=== PATIENT | female | born 1985 | race Caucasian/White ===

== ENCOUNTER 2020-07-07 13:12 | Outpatient (REF) | payer OTHER, SELFPAY ==
[2020-07-07 16:28] LABS: TSH reflex Free T4 1.51 mIU/mL (0.32-4.0)
[2020-07-07 16:34] LABS: Syphilis Screen Nonreactive (Nonreactive)
[2020-07-08 01:49] LABS: CT PCR NOT DETECTED (Not Detect.); NG PCR NOT DETECTED (Not Detect.)
[2020-07-08 07:52] LABS: Follicle Stimulating Hormone 4.9 mIU/mL; Prolactin 9.9 ng/mL
[2020-07-08 11:28] LABS: BV Int Neg Control Negative (Negative); BV Int Pos Control Positive (Positive)
[2020-07-09 08:33] LABS: HBsAGNum1 0.13 S/CO (0.00-0.99); HIV AB/AG Nonreactive (Nonreactive); HIV Num 1 0.12 S/CO (0.00-0.99); Hepatitis B Surface Antigen Negative (Negative)
[2020-07-11 13:32] LABS: Testosterone, Total 46 ng/dL (2-45)
== END 2020-07-07 13:13 | disposition home or self-care (01) ==
LOC: HO.LAB 13:12
PROVIDERS: PCP Nurse Practitioner Family; Referring Provider Nurse Practitioner Family; Visit Provider Obstetrics & Gynecology
DX: Z01.419 Encounter for gynecological examination (general) (routine) without abnormal findings (principal); Z11.3 Encounter for screening for infections with a predominantly sexual mode of transmission; N91.2 Amenorrhea, unspecified
CPT/HCPCS: 83001; 84146; 84403; 84443; 86780; 87340; 87389; 87480; 87491; 87510; 87591; 87660

== ENCOUNTER 2020-07-08 08:30 | Outpatient (REF) | payer OTHER, SELFPAY ==
[2020-07-08 08:47] LABS: COVID-19 Test Negative (Negative)
[2020-07-11 21:21] LABS: HPV 16 RNA NOT DETECTED (NOT DETECTED); HPV mRNA E6/E7 Detected (Not Detected)
== END 2020-07-08 08:31 | disposition home or self-care (01) ==
LOC: HO.LAB 08:30
PROVIDERS: Visit Provider Internal Medicine
DX: Z20.828 Contact with and (suspected) exposure to other viral communicable diseases (principal); Z12.4 Encounter for screening for malignant neoplasm of cervix; Z11.3 Encounter for screening for infections with a predominantly sexual mode of transmission
CPT/HCPCS: 87624; 87625; 87635; 88141; 88142

== ENCOUNTER → 2020-07-30 11:29 | Outpatient (BNVA) | payer OTHER, SELFPAY | PROVIDERS: Visit Provider Obstetrics & Gynecology | DX: Z76.89 Persons encountering health services in other specified circumstances (principal) ==

== ENCOUNTER 2020-08-04 09:33 | Outpatient (REF) | payer OTHER, SELFPAY ==
[2020-08-04 11:28] LABS: COVID-19 Test Negative (Negative)
== END 2020-08-04 09:34 | disposition home or self-care (01) ==
LOC: HO.EMPCOV 09:33
PROVIDERS: PCP Nurse Practitioner Family; Visit Provider Internal Medicine
DX: Z20.828 Contact with and (suspected) exposure to other viral communicable diseases (principal)
CPT/HCPCS: 87635; C9803

== ENCOUNTER 2020-08-12 08:06 | Outpatient (REF) | payer OTHER, SELFPAY ==
[2020-08-12 09:06] LABS: COVID-19 Test Negative (Negative); IDNOW Serial# 55D5AD1C
== END 2020-08-12 08:07 | disposition home or self-care (01) ==
LOC: HO.EMPCOV 08:06
PROVIDERS: Visit Provider Internal Medicine
DX: Z20.828 Contact with and (suspected) exposure to other viral communicable diseases (principal)
CPT/HCPCS: 87635; C9803

== ENCOUNTER 2020-08-14 12:51 | Outpatient (REF) | payer SELFPAY ==
--- NOTE | 2020-08-14 12:53 | US_ITS ---
EXAMINATION: ULTRASOUND PELVIS. CLINICAL INFORMATION: Amenorrhea. COMPARISON: None. TECHNIQUE: Transabdominal and transvaginal ultrasound the pelvis is performed. FINDINGS: The uterus is anteverted and anteflexed measuring 7.6 cm in length, 3.5 cm in AP and 4.5 cm transverse dimension. Uterus is homogeneous in echotexture. No focal lesions seen. Endometrial thickening measures 0.8 cm. Right ovary measures 5.3 x 3.2 x 2.1 cm and volume 18.7 mL. There are small follicles seen at the periphery, string of pearls appearance. Left ovary measures 3.2 x 2.0 x 2.5 cm and volume 8.4 mL. There is trace free fluid in the right adnexa. US/US transvaginal IMPRESSION: Unremarkable uterus. Trace free fluid in the right adnexa. Small follicles right ovary.
--- NOTE | 2020-08-14 12:53 | US_ITS ---
EXAMINATION: ULTRASOUND PELVIS. CLINICAL INFORMATION: Amenorrhea. COMPARISON: None. TECHNIQUE: Transabdominal and transvaginal ultrasound the pelvis is performed. FINDINGS: The uterus is anteverted and anteflexed measuring 7.6 cm in length, 3.5 cm in AP and 4.5 cm transverse dimension. Uterus is homogeneous in echotexture. No focal lesions seen. Endometrial thickening measures 0.8 cm. Right ovary measures 5.3 x 3.2 x 2.1 cm and volume 18.7 mL. There are small follicles seen at the periphery, string of pearls appearance. Left ovary measures 3.2 x 2.0 x 2.5 cm and volume 8.4 mL. There is trace free fluid in the right adnexa. US/US pelvic complete IMPRESSION: Unremarkable uterus. Trace free fluid in the right adnexa. Small follicles right ovary.
== END 2020-08-14 12:52 | disposition home or self-care (01) ==
LOC: HO.US 12:51
PROVIDERS: Visit Provider Obstetrics & Gynecology
DX: N91.2 Amenorrhea, unspecified (principal)
CPT/HCPCS: 76830; 76856

== ENCOUNTER → 2020-08-22 12:04 | Outpatient (BNVA) | payer SELFPAY | PROVIDERS: PCP Nurse Practitioner Family; Visit Provider Obstetrics & Gynecology | DX: N91.2 Amenorrhea, unspecified (principal) | CPT/HCPCS: 99212 ==

== ENCOUNTER 2020-09-01 09:13 | Outpatient (REF) | payer OTHER, SELFPAY ==
[2020-09-01 09:37] LABS: COVID-19 Test Negative (Negative)
== END 2020-09-01 09:14 | disposition home or self-care (01) ==
LOC: HO.EMPCOV 09:13
PROVIDERS: Visit Provider Internal Medicine
DX: Z20.828 Contact with and (suspected) exposure to other viral communicable diseases (principal)
CPT/HCPCS: 87635; C9803

== ENCOUNTER 2020-09-02 09:12 | Outpatient (REF) | payer OTHER, SELFPAY ==
[2020-09-09 15:22] LABS: Testosterone, Free 7.2 pg/mL (0.1-6.4); Testosterone, Total 33 ng/dL (2-45)
== END 2020-09-02 09:13 | disposition home or self-care (01) ==
LOC: HO.LAB 09:12
PROVIDERS: PCP Nurse Practitioner Family; Visit Provider Obstetrics & Gynecology
DX: N91.2 Amenorrhea, unspecified (principal)
CPT/HCPCS: 83498; 84402; 84403; 99212

== ENCOUNTER → 2020-09-15 11:40 | Outpatient (BNVA) | payer OTHER, SELFPAY | PROVIDERS: PCP Nurse Practitioner Family; Visit Provider Obstetrics & Gynecology | DX: Z76.89 Persons encountering health services in other specified circumstances (principal) ==

== ENCOUNTER 2020-09-18 08:14 | Outpatient (REF) | payer OTHER, SELFPAY ==
[2020-09-18 08:33] LABS: COVID-19 Test Negative (Negative)
== END 2020-09-18 08:15 | disposition home or self-care (01) ==
LOC: HO.EMPCOV 08:14
PROVIDERS: Visit Provider Internal Medicine
DX: Z20.828 Contact with and (suspected) exposure to other viral communicable diseases (principal)
CPT/HCPCS: 36415; 87635; C9803

== ENCOUNTER 2020-10-16 09:23 | Outpatient (REF) | payer OTHER, SELFPAY ==
[2020-10-16 09:41] LABS: COVID-19 Test Negative (Negative)
== END 2020-10-16 09:24 | disposition home or self-care (01) ==
LOC: HO.EMPCOV 09:23
PROVIDERS: Visit Provider Internal Medicine
DX: Z20.822 Contact with and (suspected) exposure to COVID-19 (principal)
CPT/HCPCS: 36415; 87635; C9803

== ENCOUNTER 2020-10-22 09:33 | Outpatient (REF) | payer OTHER, SELFPAY ==
[2020-10-22 09:51] LABS: COVID-19 Test Negative (Negative)
== END 2020-10-22 09:34 | disposition home or self-care (01) ==
LOC: HO.LAB 09:33
PROVIDERS: Visit Provider Internal Medicine
DX: Z20.822 Contact with and (suspected) exposure to COVID-19 (principal)
CPT/HCPCS: 36415; 87635; C9803

== ENCOUNTER → 2022-08-31 10:14 | Outpatient (BNVA) | payer OTHER, SELFPAY | PROVIDERS: Visit Provider Internal Medicine | DX: S63.641A Sprain of metacarpophalangeal joint of right thumb, initial encounter (principal); X50.3XXA Overexertion from repetitive movements, initial encounter | CPT/HCPCS: 99203 ==

== ENCOUNTER → 2022-09-07 13:23 | Outpatient (BNVA) | payer OTHER, SELFPAY | PROVIDERS: Visit Provider Internal Medicine | DX: S63.641A Sprain of metacarpophalangeal joint of right thumb, initial encounter (principal); X50.3XXA Overexertion from repetitive movements, initial encounter | CPT/HCPCS: 99213 ==